=== PATIENT | male | born 1935 | race Caucasian/White ===

== ENCOUNTER → 2016-07-02 | Day surgery (SDC) | payer MEDICARE, OTHER ==
[~2016-07-02] MED LIST: AMLODIPINE BESYL5 MG PO; ASPIRIN81 MG PO; BAYER CHEWABLE81 MG PO; CAPOZIDE PO; CLOPIDOGREL75 MG PO; COENZYME Q-1030 MG PO; FAMOTIDINE PO; FAMOTIDINE20 M1 PO; LIPITOR20 MG PO; LISINOPRIL20 MG PO; LISINOPRIL5 MG PO; METOPROLOL TAR25 MG PO; NICOTINE TRANSD21 MG EXT; NORVASC PO; OMEGA 3 1,0001 EACH; PLAVIX PO; PRAVACHOL PO; PRAVASTATIN SOD20 MG PO; VITAMIN D-32000 UNI1 PO; ZESTRIL5 MG PO; ZOCOR10 MG PO
--- NOTE | ~2016-07-02 | OR ---
Unit #: [id number] #: [id number] Patient: SANDRA MOSLEY [id number] [address] [place], [place] [address] [id number] O MR#: [id number] NAME: SANDRA MOSLEY. ROOM: Date of Procedure: 07/02/2016 Admission Date: 07/02/2016 Surgeon: Danny Salvador M.D. : 1935 Attending Physician: Ronnie Salvador Primary Care Physician: Sameer Ceballos M.D. SUR[facility]ERY CENTER OPERATIVE NOTE PROCEDURE PERFORMED Lumbar epidural steroid injection under x-ray guided needle placement with provider administered conscious sedation. PREOPERATIVE DIAGNOSES 1. Acute lumbar radiculitis. 2. Spinal stenosis, lumbosacral spine. 3. Degenerative joint disease, lumbosacral spine. 4. Degenerative disk disease, lumbosacral spine. INDICATION FOR PROCEDURE The patient presents today with longstanding history of chronic lumbar radicular pain which has been variously treated with conservative measures over the years; however, over the course of the past few months, the pain has become more frequent and more severe when present and of longer duration when present, it is also advancing in a crescendo pattern and has failed to respond to his usual conservative measures. He is in possession of MRI report, which shows diffuse disease, most notably worse at the L3-L4 and L5-S1 levels. After discussion of the risks and benefits of proceeding today with a dual needle access lumbar epidural steroid injection and return on 07/21, as well as referral to [facility] for potential facet joint injections with RFA, the patient now agreed this would be the appropriate course of action. DESCRIPTION OF PROCEDURE He was then taken to the operating room, where he was prepped and draped in a sterile manner. Standard monitors were applied. He was sedated with 1 mg of IV Versed initially and required an additional milligram of IV Versed throughout the duration of the procedure. The lumbar epidural space was accessed at the L5-S1 and L3-L4 levels without difficulty using loss of resistance technique and x-ray guidance. Needle placement was confirmed at each level with the injection of 2 mL of Omnipaque. There was good superior and inferior flow at each accessed level. Total x-ray time for this dual needle placement was 6 seconds. Following successful needle placement confirmation, the patient received an injectate containing 4 mL of normal saline and 40 mg of methylprednisolone at each level for a total injectate volume of 8 mL of normal saline and 80 mg of methylprednisolone. He tolerated this procedure well. He was discharged home with followup instructions, which included return dates as described above. Dictated by... Unit #: [id number] #: [id number] Patient: MELANYSANDRAVladislav Story/kalyan TD: 07/02/2016 14:40 JOB #: [id number] CC: Fuentes Vallejo M.D. SUR[facility]ERY CENTER OPERATIVE NOTE Page 1 of 1 X Ronnie Salvador MD X PROCEDURE OPERATIVE NOTE
== END | disposition home or self-care (01) ==
LOC: CCSC 10:05
DX: G89.29 Other chronic pain (principal); M51.17 Intervertebral disc disorders with radiculopathy, lumbosacral region; M51.16 Intervertebral disc disorders with radiculopathy, lumbar region; M48.07 Spinal stenosis, lumbosacral region; E05.90 Thyrotoxicosis, unspecified without thyrotoxic crisis or storm; F17.210 Nicotine dependence, cigarettes, uncomplicated; Z98.41 Cataract extraction status, right eye; Z98.42 Cataract extraction status, left eye
CPT/HCPCS: J1040; J2250

== ENCOUNTER → 2016-07-21 | Day surgery (SDC) | payer MEDICARE, OTHER ==
--- NOTE | ~2016-07-21 | OR ---
Unit #: [id number] #: [id number] Patient: SANDRA MOSLEY [id number] [address] [address] [id number] O MR#: [id number] NAME: SANDRA MOSLEY ROOM: Date of Procedure: 07/21/2016 Admission Date: 07/21/2016 Surgeon: Danny Salvador M.D. : 1935 Attending Physician: Danny Salvador M.D. Primary Care Physician: Sameer Ceballos M.D. SUR[facility]ERY CENTER OPERATIVE NOTE PROCEDURE PERFORMED Lumbar epidural steroid injection under x-ray guided needle placement with provider administered conscious sedation. PREOPERATIVE DIAGNOSES 1. Acute lumbar radiculitis. 2. Spinal stenosis, lumbosacral spine. 3. Degenerative joint disease, lumbosacral spine. 4. Degenerative disk disease, lumbosacral spine. 5. Facet arthrosis, lumbosacral spine. INDICATIONS FOR PROCEDURE The patient presents today status post one previous lumbar approach epidural steroid injection for an acute radiculitis, which had failed to respond to conservative therapy. The patient states he got very little relief, and what relief he got was short lasting and did not provide adequate pain relief. After discussing risks and benefits of proceeding today with second lumbar approach epidural steroid injection, the patient agreed this would be the appropriate course of action. He was also instructed to keep his appointment with [facility] and to return to this clinic on 10/29/2016. DESCRIPTION OF PROCEDURE Following these discussions, the patient was taken to the operating room, where he was prepped and draped in a sterile manner. Standard monitors were applied. He was sedated with 2 mg of IV Versed and lumbar epidural space accessed at L3-L4 level using loss of resistance technique and x-ray guidance. Needle placement was confirmed with injection of 2 mL of Omnipaque. There was good superior and inferior flow at this L3-L4 placed needle. Total x-ray time for this needle placement was 4 seconds. Following successful needle placement at the L3-L4 interspace, the patient received an injectate containing 8 mL normal saline and 80 mg of methylprednisolone. He tolerated this procedure well. He was discharged home with followup instructions, which included return dates as described above. Dictated by... Danny Salvador M.D. VICENTA/kalyan MONTES: 07/21/2016 14:19 TD: 07/22/2016 03:14 Unit #: [id number] #: [id number] Patient: SANDRA MOSLEY JOB #: [id number] CC: Fuentes Vallejo M.D. SUR[facility]ERY CENTER OPERATIVE NOTE Page 1 of 1 X Ronnie Salvador MD PROCEDURE OPERATIVE NOTE
== END | disposition home or self-care (01) ==
LOC: CCSC 12:27
DX: M47.27 Other spondylosis with radiculopathy, lumbosacral region (principal); M51.17 Intervertebral disc disorders with radiculopathy, lumbosacral region; M48.07 Spinal stenosis, lumbosacral region
CPT/HCPCS: J1040; J2250